=== PATIENT | female | born 1995 ===

== ENCOUNTER 2017-04-18 17:43 | Emergency (ER) | payer BC ==
[2017-04-18 18:02] VITALS: BP 133/83
--- NOTE | 2017-04-18 18:09 | UC ---
Throat Pain/Nasal Marvel HPI - HPI Summary HPI Summary: sore throat x 4 days no nasal congestion , no cough, no fever, no chills - History of Current Complaint Chief Complaint: UCGeneralIllness Stated Complaint: sore throat Time Seen by Provider: 04/18/17 17:56 Hx Obtained From: Patient Hx Last Menstrual Period: 3 wks ago Onset/Duration: Gradual Onset, Lasting Days - 4, Still Present Severity: Moderate Cough: None Associated Signs & Symptoms: Negative: Drooling, Sinus Discomfort, Nasal Discharge, Fever, Rash - Allergies/Home Medications Allergies/Adverse Reactions: Allergies Allergy/AdvReac Type Severity Reaction Status Date / Time Amoxicillin Allergy Hives Verified 04/18/17 17:57 seasonal Allergy Eyes Uncoded 04/18/17 17:57 Itchy/Swollen/Red/Watery Home Medications: Home Medications Norgestrel & Ethinyl Estradiol [Cryselle-28] 1 tab PO DAILY 04/18/17 [History Confirmed 04/18/17] Venlafaxine EXT RELEASE CAP* [Effexor Xr CAP*] 4 tab PO DAILY 04/18/17 [History Confirmed 04/18/17] PMH/Surg Hx/FS Hx/Imm Hx Previously Healthy: Yes - Surgical History Surgical History: None - Family History Known Family History: Negative: Diabetes - Social History Alcohol Use: None Substance Use Type: None Smoking Status (MU): Never Smoked Tobacco Review of Systems Constitutional: Negative Skin: Negative Eyes: Negative ENT: Sore Throat Respiratory: Negative Cardiovascular: Negative Gastrointestinal: Negative All Other Systems Reviewed And Are Negative: Yes Physical Exam Triage Information Reviewed: Yes Appearance: Well-Appearing, No Pain Distress, Well-Nourished Vital Signs: Initial Vital Signs Temp 99.3 F 04/18/17 17:59 Pulse 85 04/18/17 17:59 Resp 16 04/18/17 17:59 BP 133/83 04/18/17 17:59 Pulse Ox 100 04/18/17 17:59 Vital Signs Reviewed: Yes Eyes: Positive: Conjunctiva Clear ENT: Positive: Normal ENT inspection, Hearing grossly normal, Pharynx normal, TMs normal. Negative: Pharyngeal erythema, Nasal congestion, Nasal drainage Neck: Positive: Supple, Nontender, No Lymphadenopathy Respiratory: Positive: Lungs clear, Normal breath sounds Cardiovascular: Positive: RRR, No Murmur, Pulses Normal Throat Pain/Nasal Course/Dx - Differential Dx/Diagnosis Provider Diagnoses: viral pharyngitis Discharge - Discharge Plan Condition: Stable Disposition: HOME Patient Education Materials: Pharyngitis (ED) Referrals: Hernan Menezes MD [Primary Care Provider] - If Needed
== END 2017-04-18 18:22 | disposition home or self-care (01) ==
LOC: UCCORT 17:43
DX: J20.8 Acute bronchitis due to other specified organisms (principal); Z88.1 Allergy status to other antibiotic agents
CPT/HCPCS: 99201; G0463